=== PATIENT | female | born 1960 | race Caucasian/White ===

== ENCOUNTER 2020-05-09 15:49 | Emergency (ER) | payer BC, OTHER ==
--- NOTE | 2020-05-09 16:57 | CR ---
PROCEDURE INFORMATION: Exam: XR Chest, 1 View Exam date and time: 05/09/2020 4:04 PM Age: 60 years old Clinical indication: Dyspnea TECHNIQUE: Imaging protocol: XR of the chest Views: 1 view. COMPARISON: No relevant prior studies available. FINDINGS: Lungs: Ill-defined increased density left lower lung laterally with some thick linearity. Linear horizontal hyperdensity right lower lung laterally. New Pleural space: Costophrenic angles are sharp. No pneumothorax. Heart/Mediastinum: Unremarkable. No cardiomegaly. Bones/joints: Age appropriate. IMPRESSION: Abnormal lung markings which could be pneumonia, subsegmental atelectasis, or scarring. Thank you for allowing us to participate in the care of your patient. Dictated and Authenticated by: Francois Tracey MD 05/09/2020 5:50 PM Central Time ([place] & [place]) MADAI
--- NOTE | 2020-05-09 17:13 | EDM.PDOC ---
ED HPI GENERAL MEDICAL PROBLEM - General Chief Complaint: Respiratory Problem Stated Complaint: COVID + COUGH/SOB Time Seen by Provider: 05/09/20 15:59 Source of Information: Reports: Patient, RN Notes Reviewed History Limitations: Reports: No Limitations - History of Present Illness INITIAL COMMENTS - FREE TEXT/NARRATIVE: Patient is a 60-year-old female presenting to the emergency department with complaints of cough, body aches, loss of taste and smell, decreased appetite, generalized body aches, fatigue, and weakness. She states her symptoms began on Saturday of last week. She was Covid tested on Saturday and received her positive results on Saturday. She denies feeling short of breath, however states that her cough is quite harsh. She occasionally coughs up thick white sputum. She states that her oxygen saturation was 88% at home, however in triage her oxygen saturation is 94%. She denies any abdominal pain, nausea, or vomiting. She has had some low-grade fevers, but admits that she does not check it very regularly. When she did check it it was 100.1. Patient has a past medical history significant for hypertension, coronary artery disease, and high chol esterol. - Related Data Allergies Allergy/AdvReac Type Severity Reaction Status Date / Time atorvastatin [From Lipitor] Allergy Other Verified 05/09/20 16:02 escitalopram [From Lexapro] Allergy Cannot Verified 05/09/20 16:02 Remember eszopiclone [From Lunesta] Allergy Cannot Verified 05/09/20 16:02 Remember pregabalin [From Lyrica] Allergy Joint Pain Verified 05/09/20 16:02 Past Medical History Cardiovascular History: Reports: CAD, High Cholesterol, Hypertension Musculoskeletal History: Reports: Back Pain, Chronic Psychiatric History: Reports: Depression - Infectious Disease History Infectious Disease History: Reports: Novel Coronavirus - Past Surgical History Musculoskeletal Surgical History: Reports: Other (See Below) Other Musculoskeletal Surgeries/Procedures:: back surgery Social & Family History - Tobacco Use Tobacco Use Status *Q: Never Tobacco User Second Hand Smoke Exposure: No - Caffeine Use Caffeine Use: Reports: None - Recreational Drug Use Recreational Drug Use: No ED ROS GENERAL - Review of Systems Review Of Systems: See Below Constitutional: Reports: Fever, Weakness, Fatigue HEENT: Reports: Throat Pain Respiratory: Reports: Cough. Denies: Shortness of Breath Cardiovascular: Reports: No Symptoms. Denies: Chest Pain, Dyspnea on Exertion, Lightheadedness, Syncope Endocrine: Reports: Fatigue GI/Abdominal: Reports: Decreased Appetite. Denies: Diarrhea, Nausea, Vomiting : Reports: No Symptoms Musculoskeletal: Reports: No Symptoms Skin: Reports: No Symptoms Neurological: Reports: No Symptoms Psychiatric: Reports: No Symptoms Hematologic/Lymphatic: Reports: No Symptoms Immunologic: Reports: No Symptoms ED EXAM, GENERAL - Physical Exam Exam: See Below Exam Limited By: No Limitations General Appearance: Alert, WD/WN, No Apparent Distress Respiratory/Chest: No Respiratory Distress, Lungs Clear, Normal Breath Sounds, No Accessory Muscle Use, Chest Non-Tender, Other (harsh cough with deep breathing). No: Crackles, Rales, Rhonchi Cardiovascular: Normal Peripheral Pulses, Regular Rate, Rhythm, No Edema, No Gallop, No JVD, No Murmur, No Rub GI/Abdominal: Normal Bowel Sounds, Soft, Non-Tender, No Organomegaly, No Distention, No Abnormal Bruit, No Mass Neurological: Alert, Oriented, CN II-XII Intact, Normal Cognition, Normal Gait, Normal Reflexes, No Motor/Sensory Deficits Psychiatric: Normal Affect, Normal Mood Skin Exam: Warm, Dry, Intact, Normal Color, No Rash #1 Interpretation EKG Date: 05/09/20 Time: 17:04 Rhythm: NSR Rate (Beats/Min): 86 [place]: Normal P-Wave: Present QRS: Normal ST-T: Normal QT: Normal Course - Vital Signs Last Recorded V/S: Last Vital Signs Temp 99.4 F 05/09/20 20:15 Pulse 85 05/09/20 20:15 Resp 22 H 05/09/20 20:15 BP 120/83 05/09/20 20:15 Pulse Ox 92 L 05/09/20 20:15 - Orders/Labs/Meds Labs: Laboratory Tests 05/09/20 05/09/20 05/09/20 Range/Units 16:32 16:32 16:32 WBC 6.75 (3.98-10.04) K/mm3 RBC 4.97 (3.98-5.22) M/mm3 Hgb 15.6 (11.2-15.7) gm/dl Hct 45.9 H (34.1-44.9) % MCV 92.4 (79.4-94.8) fl MCH 31.4 (25.6-32.2) pg MCHC 34.0 (32.2-35.5) g/dl RDW Std Deviation 39.8 (36.4-46.3) fL Plt Count 239 (182-369) K/mm3 MPV 10.3 (9.4-12.3) fl Neut % (Auto) 82.2 H (34.0-71.1) % Lymph % (Auto) 8.9 L (19.3-51.7) % [place] % (Auto) 8.7 (4.7-12.5) % Eos % (Auto) 0.1 L (0.7-5.8) Baso % (Auto) 0.1 (0.1-1.2) % Neut # (Auto) 5.54 (1.56-6.13) K/mm3 Lymph # (Auto) 0.60 L (1.18-3.74) K/mm3 [place] # (Auto) 0.59 H (0.24-0.36) K/mm3 Eos # (Auto) 0.01 L (0.04-0.36) K/mm3 Baso # (Auto) 0.01 (0.01-0.08) K/mm3 Manual Slide Review Abnormal smear D-Dimer, Quantitative 0.43 (0.19-0.50) mg/L Sodium 133 L (136-145) mEq/L Potassium 3.3 L (3.5-5.1) mEq/L Chloride 94 L (98-107) mEq/L Carbon Dioxide 30 (21-32) mEq/L Anion Gap 12.3 (5-15) BUN 14 (7-18) mg/dL Creatinine 1.0 (0.55-1.02) mg/dL Est Cr Clr Drug Dosing 46.13 mL/min Estimated GFR (MDRD) 56 (>60) mL/min BUN/Creatinine Ratio 14.0 (14-18) Glucose 111 (80-115) mg/dL Calcium 9.5 (8.5-10.1) mg/dL Ferritin (8-252) ng/ml Total Bilirubin 0.3 (0.2-1.0) mg/dL AST 25 (15-37) U/L ALT 37 (14-59) U/L Alkaline Phosphatase 97 (46-116) U/L Lactate Dehydrogenase 189 (81-234) U/L Troponin I < 0.017 (0.00-0.056) ng/mL C-Reactive Protein 6.2 H* (<1.0) mg/dL NT-Pro-B Natriuret Pep (0-125) pg/mL Total Protein 7.9 (6.4-8.2) g/dl Albumin 3.7 (3.4-5.0) g/dl Globulin 4.2 gm/dL Albumin/Globulin Ratio 0.9 L (1-2) 05/09/20 05/09/20 Range/Units 16:32 16:32 WBC (3.98-10.04) K/mm3 RBC (3.98-5.22) M/mm3 Hgb (11.2-15.7) gm/dl Hct (34.1-44.9) % MCV (79.4-94.8) fl MCH (25.6-32.2) pg MCHC (32.2-35.5) g/dl RDW Std Deviation (36.4-46.3) fL Plt Count (182-369) K/mm3 MPV (9.4-12.3) fl Neut % (Auto) (34.0-71.1) % Lymph % (Auto) (19.3-51.7) % [place] % (Auto) (4.7-12.5) % Eos % (Auto) (0.7-5.8) Baso % (Auto) (0.1-1.2) % Neut # (Auto) (1.56-6.13) K/mm3 Lymph # (Auto) (1.18-3.74) K/mm3 [place] # (Auto) (0.24-0.36) K/mm3 Eos # (Auto) (0.04-0.36) K/mm3 Baso # (Auto) (0.01-0.08) K/mm3 Manual Slide Review D-Dimer, Quantitative (0.19-0.50) mg/L Sodium (136-145) mEq/L Potassium (3.5-5.1) mEq/L Chloride (98-107) mEq/L Carbon Dioxide (21-32) mEq/L Anion Gap (5-15) BUN (7-18) mg/dL Creatinine (0.55-1.02) mg/dL Est Cr Clr Drug Dosing mL/min Estimated GFR (MDRD) (>60) mL/min BUN/Creatinine Ratio (14-18) Glucose (80-115) mg/dL Calcium (8.5-10.1) mg/dL Ferritin 444 H (8-252) ng/ml Total Bilirubin (0.2-1.0) mg/dL AST (15-37) U/L ALT (14-59) U/L Alkaline Phosphatase (46-116) U/L Lactate Dehydrogenase (81-234) U/L Troponin I (0.00-0.056) ng/mL C-Reactive Protein (<1.0) mg/dL NT-Pro-B Natriuret Pep 19 (0-125) pg/mL Total Protein (6.4-8.2) g/dl Albumin (3.4-5.0) g/dl Globulin gm/dL Albumin/Globulin Ratio (1-2) Meds: Medications Discontinued Medications Generic Name Dose Route Start Last Admin Trade Name Freq PRN Reason Stop Dose Admin Bamlanivimab 700 mg/ Sodium 200 mls @ 200 mls/hr 05/09/20 17:21 05/09/20 18:06 Chloride IV 05/09/20 17:22 200 mls/hr ONETIME ONE Administration - Re-Assessments/Exams Free Text/Narrative Re-Assessment/Exam: Patient is a 60-year-old female with a known diagnosis of COVID-19 presenting to the emergency department with complaints of cough, body aches, fever, chills, creased appetite, loss of taste and smell. She denies any significant shortness of breath either at rest or exertion. She states her oxygen saturation at home was as low as 88%, however in triage she is 94% and has been maintaining in this range since arrival. She is afebrile at 97.6. Given the patient's age as well as her comorbid conditions of coronary artery disease, hypertension, and high cholesterol, she would qualify for treatment with Bamlanivimab. She has been provided with an information packet and advised of the risks the benefits. She is going to think about this and visit with her . In the meantime, I have ordered routine Covid labs, chest x-ray, and EKG. 05/09/20 17:10 I spoke with the patient to provide information about bamlanivimab treatment She was provided with the Patient and Caregiver [employer] Bamlanivimad Fact Sheet to read and review I stated the drug has been approved by an emergency use authorization (EUA) process and has not fully been FDA reviewed or approved The patient meets the EUA requirements I discussed there are other potential treatment options that are currently not FDA approved to treat COVID-19. Offered opportunity to ask questions and all questions were answered. Patient voiced understanding and, after visiting with her has agreed to proceed with treatment. Hematology was significant for a sodium of 133, potassium 3.3, ferritin 444, CRP 6.2. Troponin and D-dimer were negative. LDH was normal. Chest x-ray shows abnormal lung markings which could be pneumonia, subsegmental atelectasis, or scarring. EKG was normal. We will start infusion of Bamlanivimab and monitor the patient for 1 hour after infusion. 05/09/20 19:10 Patient has finished the infusion of Bamlanivimad and tolerated well. We will watch her for an hour after infusion before we discharged home. Oxygen saturations continue to maintain 91 to 94%. 05/09/20 20:14 Patient has finished her 1 hour monitoring. After the monoclonal antibody infusion. She has had no reaction to the medication. Oxygen saturations are maintaining 92 to 94% on room air. Discussed ongoing monitoring and symptomatic treatment at home as well as return precautions. Discharge instructions as documented. Departure - Departure Time of Disposition: 20:15 Disposition: Home, Self-Care 01 Condition: Good Clinical Impression: COVID-19 - Discharge Information *PRESCRIPTION DRUG MONITORING PROGRAM REVIEWED*: No *COPY OF PRESCRIPTION DRUG MONITORING REPORT IN PATIENT KATHLEEN: No Instructions: COVID-19 Frequently Asked Questions, COVID-19 Referrals: Anmol Noel MD [Primary Care Provider] - Forms: ED Department Discharge Additional Instructions: You were seen in the emergency department today for worsening of your symptoms associate with COVID-19. Work-up included blood work, chest x-ray, and EKG. Results your work-up were found to be overall normal. While in the ER, you did receive an infusion of Bamlanivimab which is a monoclonal antibody that is under an emergency use authorization. You are monitored for 1 hour following this and showed no evidence of reaction. Recommend that you continue to monitor your oxygen saturations intermittently throughout the day. If you are maintaining an oxygen saturation below 90% or you experience any other new or worsening symptoms of concern, please not hesitate to return to the ER for reevaluation. Sepsis Event Note (ED) - Evaluation Sepsis Screening Result: No Definite Risk - Focused Exam Vital Signs: Vital Signs Temp Pulse Resp BP Pulse Ox 05/09/20 20:15 99.4 F 85 22 H 120/83 92 L 05/09/20 18:05 99.3 F 86 26 H 118/73 91 L 05/09/20 15:57 97.6 F 100 16 165/90 H 94 L
== END 2020-05-09 20:30 | disposition home or self-care (01) ==
LOC: JD.ED 15:49
DX: U07.1 COVID-19 (principal); I10 Essential (primary) hypertension; I25.10 Atherosclerotic heart disease of native coronary artery without angina pectoris; Z88.8 Allergy status to other drugs, medicaments and biological substances
CPT/HCPCS: 36415; 71045; 80053; 82728; 83615; 83880; 84484; 85025; 85379; 86140; 93005; 96365; 99285; J7050; 99283